=== PATIENT | female | born 1955 | race Caucasian/White ===

== ENCOUNTER → 2023-11-30 | Outpatient (CLI) | payer MEDICARE, OTHER ==
[~2023-11-30] MED LIST: Albuterol 0.083% Neb Soln 2.5 MG/3 ML UD IH ONE; CLARITIN 1010 MG/TAB PO; FISH OIL 1000MG1 CAP; FLONASE NASAL S16 GM NS; HCTZ 25MG TAB25 MG PO; MULTIPLE VITAMI1 CAP PO; SYNTHROID0.1 MG/TAB PO; VITAMIN D 1001000 IU PO; ZESTRIL 10MG10 MG PO
== END ==
LOC: COL.CARD 08:00
DX: R06.02 Shortness of breath (principal); Z87.891 Personal history of nicotine dependence

== ENCOUNTER → 2023-12-01 | Outpatient (CLI) | payer MEDICARE, OTHER ==
[~2023-12-01] MED LIST changes: +Methacholine Vial A (Clear Label Base-Cntrl) IH ONE; +Methacholine Vial B (Red Label) 0.0625 MG/ML 3 ML VIAL.NEB IH ONE; +Methacholine Vial C (Orange Label) 0.25 MG/ML 3 ML VIAL.NEB IH ONE; +Methacholine Vial D (Yellow Label) 1 MG/ML 3 ML VIAL.NEB IH ONE; +Methacholine Vial E (Green Label) 4 MG/ML 3 ML VIAL.NEB IH ONE; +Methacholine Vial F (Blue Label) 16 MG/ML 3 ML VIAL.NEB IH ONE
== END ==
LOC: COL.CARD 07:58
DX: R06.02 Shortness of breath (principal); Z87.891 Personal history of nicotine dependence
CPT/HCPCS: J7674